=== PATIENT | female | born 1975 | race Hispanic/Latino ===

== ENCOUNTER 2023-09-29 18:10 | Inpatient (IN) | payer OTHER, SELFPAY ==
[2023-09-29] VITALS (12 sets, daily range): BP systolic 103–133; BP diastolic 55–93; BMI 24.6; BMI 23.6
[2023-09-29 13:18] LABS: % Basophils 0.5 % (0-2); % Eosinophils 6.2 % (0-6); % Immature Granulocytes 0.2 % (0-0.5); % Lymphocytes 20.2 % (20.5-51.1); % Monocytes 5.7 % (1.7-9.3); % Neutrophils 67.2 % (42.2-75.2); Absolute Eosinophils 0.3 10^3/uL (0-0.7); Absolute Lymphocytes 0.8 10^3/uL (1.2-3.4); Absolute Monocytes 0.2 10^3/uL (0.1-0.6); Absolute Neutrophils 2.7 10^3/uL (1.4-6.5); Hematocrit 33.8 % (37.0-47.0); Hemoglobin 12.4 g/dL (12.0-16.0); Mean Corp Hgb Conc. 36.7 g/dL (33.0-37.0); Mean Corpuscular Hgb 33.2 pg (27.0-31.0); Mean Corpuscular Volume 90.6 fL (81.0-99.0); Mean Platelet Volume 10.8 fL (7.4-10.4); Nucleated Red Blood Cells % 0 %; Platelet Count 181 10^3/uL (130-400); Red Blood Cell Count 3.73 10^6/uL (4.20-5.40); Red Cell Dist. Width 12.6 % (11.5-14.5); Urine Albumin Trace (Neg - Trace); Urine Bilirubin Negative (Negative); Urine Character Clear (Clear); Urine Color Yellow; Urine Glucose Negative (Negative); Urine Ketone 1+ (Negative); Urine Leukocyte Trace (Negative); Urine Nitrite Negative (Negative); Urine Occult Blood Negative (Negative); Urine Urobilinogen Negative (Neg - 1+); White Blood Cell Count 4.1 10^3/uL (4.8-10.8)
[2023-09-29 13:30] LABS: ALT (SGPT) 35 U/L (0-35); AST (SGOT) 31 U/L (14-36); Albumin 4.9 g/dl (3.5-5.0); Alkaline Phosphatase 101 U/L (38-126); Blood Urea Nitrogen 8 mg/dl (7-17); Calcium 9.3 mg/dl (8.4-10.2); Carbon Dioxide 26 mmol/L (22-30); Chloride 91 mmol/L (98-107); Estimated Creatinine Clearance 100 ml/min; Glucose 100 mg/dl (70-99); Lipase 85 U/L (23-300); Sodium 123 mmol/L (135-145); Total Bilirubin 0.6 mg/dl (0.2-1.3); Total Protein 7.7 g/dl (6.3-8.2); eGFR > 60.00
--- NOTE | 2023-09-29 13:31 | ED.GENMED ---
History of Present Illness
General
Chief Complaint: Abdominal Symptoms
Source: patient
Exam Limitations: none
Time Seen by Provider: 09/29/23 12:52
Nursing documentation reviewed up to this point in time: agreed with
Travel History
Have you had any contact with someone who has COVID-19?: No
Do you have any symptoms of coronavirus? Fever > 100 degrees, chills, cough, shortness of breath, sore throat, loss of taste or smell, muscle aches, or headache?: No
History of Present Illness
History of Present Illness:
48-year-old female with past medical history of trigeminal neuralgia on Tegretol history of hyponatremia presents to the ER for evaluation of abdominal pain. She reports she first noticed that her stomach seemed to be very noisy and gurgly and then
developed nausea and discomfort. She had loose stools on Tuesday. She went to urgent care on Tuesday and was told she had gastritis and given Zofran for nausea. She does describe abdominal discomfort with burning sensation and also describing
reflux. She today felt very dizzy in addition to abdominal discomfort. She denies any fever or chills. Denies any new frequency urgency or dysuria.
Past History
Past History
ED Past Medical History: GERD and Other (Trigeminal Neuralgia, hyponatremia)
ED Past Surgical History: None
Social History
Tobacco: Non-smoker
Alcohol: None
Personal:
Living: with family
Employment: Not employed
Family History
Family History: Other (Noncontributory)
Review of Systems
Review of Systems
Allergies reviewed?: Yes
All Other Systems: ROS reviewed and negative except as documented in HPI and ROS
Constitutional: Reports no symptoms; Denies fever, fatigue or chills
Respiratory: Reports no symptoms
Cardiac: Reports no symptoms
ABD/GI: Reports abdominal pain, nausea and other (loose stools several days ago ); Denies vomiting
Phy Exam
General Physical Exam
General Presentation: no apparent distress
General age: appears stated age
General Skin: warm and dry
General Habitus: normal
General Mental: alert
General Hydration: appears well hydrated
Cardiovascular Exam
Cardiovascular Exam: regular rate/rhythm, no murmur and normal peripheral pulses
Pulmonary Exam
Pulmonary Exam: lungs clear, no respiratory distress and no rales
Gastrointestinal Exam
Gastrointestinal Exam: soft and other (mild left abdominal tenderness )
Neurological Exam
Neurological Exam: alert and oriented x3
Musculoskeletal Exam
Musculoskeletal Exam: full ROM
Skin Exam
Skin Exam: normal color and warm/dry
Psychiatric Exam
Psychiatric Exam: normal mood/affect
Course
Orders/Labs/Results
Orders:
Orders
09/29/23 12:56
IV Insert/Care/Rem.- Treatment PRN
09/29/23 13:07
Complete Blood Count/With Diff Urgent
Comprehensive Metabolic Panel Urgent
HCG, Serum Qualitative Screen Urgent
Comment: ADD ON
Lipase Urgent
Osmolality, Random Urine Urgent
Date Specimen was Collected: 09/29/23
Time Specimen was Collected: 12:56
Comment: ADDON
Urinalysis Reflex To Culture Urgent
Date Specimen was Collected: 09/29/23
Time Specimen was Collected: 12:56
Urine Microscopic Reflex Cult Urgent
09/29/23 13:30
Ondansetron Injectable [Zofran] 4 mg IV NOW STA
09/29/23 13:31
Famotidine [Pepcid] 20 mg IV NOW STA
09/29/23 13:33
Add On- LAB Urgent
Tests Added?: serum hcg
09/29/23 13:35
CT Abd/pel W Iv And Oral Contr Urgent
Comment:
Reason For Exam: abd pain tenderness left abdomen
Iohexol [Omnipaque] See Protocol PO NOW STA
09/29/23 16:00
3% Sodium Chloride 250 ml [Sodium Chloride 3%] 250 ml IV ONCE
09/29/23 16:50
Electrocardiogram (*1) Stat
Reason for Study: Other
Other Reason for Exam: chest pain
EKG- Treatment ONCE
09/29/23 17:18
Admit/Transfer Patient As Directed
Co-Sign Provider:
Level of Care: Inpatient admission
Assign to:: Medical/Surgical
Physician / Group: maloney/hospitalist
Diagnosis: Hyponatremia
Reason for Hospitalization: Hyponatremia, weakness, gastroenteritis
Expected length of stay greater than two midnights?: Yes
ELOS- Estimated Length of Stay in days: 3
I certify the patient meets the requirements for IP care: Yes
09/29/23 17:19
Code Status As Directed
Resuscitation Status: Full Code
Abnormal Lab Results
09/29/23
13:07
WBC 4.1 L 10^3/uL
(4.8-10.8)
RBC 3.73 L 10^6/uL
(4.20-5.40)
Hct 33.8 L %
(37.0-47.0)
MCH 33.2 H pg
(27.0-31.0)
MPV 10.8 H fL
(7.4-10.4)
Absolute Lymphs (auto) 0.8 L 10^3/uL
(1.2-3.4)
Lymphocytes % 20.2 L %
(20.5-51.1)
Eosinophils % 6.2 H %
(0-6)
Sodium 123 L mmol/L
(135-145)
Chloride 91 L mmol/L
(98-107)
Creatinine 0.5 L mg/dL
(0.6-1.0)
Glucose 100 H mg/dl
(70-99)
Urine Ketones 1+ A
(Negative)
Leukocyte Esterase Rfl Trace A
(Negative)
Urine Bacteria (Reflex) Few A
(Negative)
09/29/23 13:07
09/29/23 13:07
Vital Signs
Initial and Last Documented VS:
Initial Vital Signs
Temp Pulse Resp BP Pulse Ox
98.1 F 73 16 111/78 98
09/29/23 12:35 09/29/23 12:35 09/29/23 12:35 09/29/23 12:35 09/29/23 12:35
Last Documented Vital Signs
Temp Pulse Resp BP Pulse Ox
98.1 F 82 24 108/72 98
09/29/23 12:35 09/29/23 18:15 09/29/23 18:15 09/29/23 18:00 09/29/23 18:15
MDM/Problems Addressed
Differential Diagnosis Includes:
not limited to: Reflux/GERD/gastritis/pancreatitis diverticulitis electrolyte abnormality hyponatremia
MDM/Problems Addressed:
48-year-old female presents to the ER for evaluation. Patient complains of abdominal discomfort, burning, nausea and also dizziness. Patient has a history of hyponatremia. Patient has been admitted for this previously the past and it was thought
to be carbamazepine related. She has been following fluid restriction but does report her Lasix was stopped by an emergency physician. She presents awake alert no acute afebrile stable hemoglobin at 12.4 her sodium is again low at 123 with normal
renal function. Regarding abdominal pain patient is mildly tender left side will obtain CAT scan. Regarding hyponatremia I spoke with nephrology who recommended hypertonic saline which was started in the ER. Will require admission
1648: No acute findings on CAT scan patient mid to the hospital service
Chronic conditions affecting care:
History of trigeminal neuralgia on carbamazepine which was thought to be causing hyponatremia and past admissions
*Radiology
Radiology exam reviewed: radiology read reviewed
*Pulse Oximetry
Patient hypoxic: no
*Critical Care Note
Total Time (30-74mins, 75-104mins- exclusive of procedures): Not Applicable
Data Reviewed
Review of Other/Old Records Reveals: Labs and Discharge Summary
Source: patient and spouse
Patient Management
Discussion with other providers: Manager Of [employer] (Nephrology, Dr. Bob)
ED Attending Note
-
Portions of this chart may have been created with voice recognition software.� Occasional wrong word or��sound alike� substitutions may have occurred due to the inherent limitations of voice recognition software.
Discharge Plan
Departure
Patient Disposition: Admit
Date of Disposition: 09/29/23
Time of Disposition: 17:21
Admit to: ICU
Admit to doctor: hospitalist
Presentation/result/management discussed w/ accepting MD/DO: Hospitalist
Patient with high blood pressure during this ER visit?: No
Condition: Fair
Covid-19: Not Applicable
Discharge Problem:
Acute hyponatremia, Abdominal pain
Interventions
Interventions:
*Risk Screen - Suicide Last Done: 09/29/23 13:21
*General Assessment Last Done: 09/29/23 13:21
*Neglect/Abuse Screening Last Done: 09/29/23 13:21
ED- Fall Risk Assessment Last Done: 09/29/23 13:21
*ED COVID-19 Vaccine History Last Done: 09/29/23 12:35
OH-Trpchh-Kjgfexnxdo Assessment Last Done: 09/29/23 13:21
[2023-09-29] MEDS: OMNIPAQUE 50 ML PO (13:48)
[2023-09-29] MEDS: PEPCID 20 MG IV (13:48)
[2023-09-29] MEDS: ZOFRAN 4 MG IV (13:48)
[2023-09-29 13:54] LABS: HCG, Serum Qualitative Screen Negative
[2023-09-29 14:01] LABS: Urine Bacteria Few (Negative); Urine Red Blood Cell 0-2 /HPF (0-2)
[2023-09-29 14:02] LABS: Urine Mucus Moderate
[2023-09-29] MEDS: SODIUM CHLORIDE 3% 250 IV (16:54)
--- NOTE | 2023-09-29 17:12 | HPS.HSE ---
Family Physician
-
Family Physician: Niru Mayo DO
Chief Complaint
-
weakness
History of Present Illness
48 female past medical history as below presenting from home with complaints of reflux. Patient states last week she had abdominal discomfort and went to urgent care where she was diagnosed with gastritis. At home patient complains of multiple
episode of reflux and burning sensation in the epigastric region. States at night she was having increasing amount of reflux in the esophagus and also metallic taste of her tongue. Also states of increasing abdominal sounds. Had 1 episode of
diarrhea on Tuesday. States of diffuse weakness. States of severely decreased appetite and only eating chicken broth. Had some nausea but no vomiting. Stools are starting to form. No fever but positive for chills. Denies any sick contact at
home. Denies any change in diet. Denies any recent takeout or restaurant food. States of increasing amount of reflux and chronic muscular back pain. States seeing chiropractor for her back pain.
Medical History
Past Medical History
Past Medical History: Reports Other
Additional Past Medical History:
Trigeminal neuralgia
Hyponatremia
Chronic muscular back pain
GERD
Past Surgical History: Reports None
Social History
Tobacco: Non-smoker
Alcohol: None
Personal:
Living: With Family
Family History
Family History: Not pertinent
Allergies / Home Medications
Allergies reflects when Allergies were last updated in [employer].
Home Medications with original date entered in [employer]
Allergy/Medication List:
Allergies
Allergy/AdvReac Type Severity Reaction Status Date / Time
No Known Allergies Allergy Verified 09/29/23 12:37
Home Medications
carbamazepine 200 mg tablet 400 mg PO BID trigeminal neuralgia 06/17/23
acetaminophen 325 mg tablet (Tylenol) 650 mg PO Q4HPRN PRN HEADACHE 09/29/23
cholecalciferol (vitamin D3) 25 mcg (1,000 unit) chewable tablet (Vitamin D3) 25 mcg PO DAILY 09/29/23
cyanocobalamin (vitamin B-12) 1,000 mcg tablet 1,000 mcg PO DAILY 09/29/23
vitamin E 268 mg (400 unit) capsule 268 mg PO DAILY 09/29/23
Review of Systems
-
History Source: Patient
A 12 point ROS was completed and negative except as noted: Yes
Physical Exam
Vital Signs
Vital Signs
Temp Pulse Resp BP Pulse Ox
98.1 F 66 15 120/79 100
09/29/23 12:35 09/29/23 16:00 09/29/23 16:00 09/29/23 16:00 09/29/23 16:00
Physical Exam
General: Well Developed, Well Nourished and No Apparent Distress
HEENT: NormoCephalic, Moist mucous membranes and Atraumatic
Respiratory: Clear
Cardiac: S1/S2 and Regular Rhythm; No Murmur or Rub
GI: Soft, Non Tender, Non Distended and Normal Bowel Sounds; No Organomegaly
Rectal: Deferred by Provider
Musculoskeletal: No Clubbing, No Cyanosis, No Edema and Other (TTP on left lower scapula region)
Skin: No Rash
Neuro: Awake, Alert, Oriented, AO x 3, No Motor Deficits and Nonfocal/grossly intact
Psych: Calm
Laboratory Results
-
09/29/23 13:07
09/29/23 13:07
Laboratory Results
Total Bilirubin 0.6 mg/dl (0.2-1.3) 09/29/23 13:07
AST 31 U/L (14-36) 09/29/23 13:07
ALT 35 U/L (0-35) 09/29/23 13:07
Alkaline Phosphatase 101 U/L (38-126) 09/29/23 13:07
Lipase 85 U/L (23-300) 09/29/23 13:07
Impression/Plan
-
#Symptomatic hyponatremia likely secondary to decreased p.o. intake versus SIADH in the setting of chronic muscular back pain versus side effects of Tegretol
Patient with sodium 123
Patient states she is compliant with fluid restriction of 48 ounce
Case was discussed with nephrology by ER and started on hypertonic saline
Trend BMP
Patient states unable to be weaned off Tegretol due to severe pain
Nephrology eval
#GERD
Start patient on Pepcid twice daily
#Nausea/diarrhea likely secondary to viral gastroenteritis
CT abdomen pelvis noted. CBD at 1cm. No finding to suggest intrahepatic biliary tract dilatation. Gallbladder within normal limits. Pancreas no finding to suggest pancreatic ductal dilatation. No right upper quadrant abdominal pain.
AST, ALT and total bilirubin and alk phos within normal limits lipase within normal limits
Low residue diet and monitor. If repeat episode of discomfort may need to consider GI eval
Antinausea meds as needed
#Trigeminal neuralgia
Continue with Tegretol
Chronic muscular back pain
Tylenol as needed
Ice pack as needed
DVT prophylaxis Lovenox
[2023-09-29 18:48] LABS: Osmolality Urine 489 mOsm/kg (300-900)
[2023-09-29] MEDS: PEPCID 20 MG PO (21:12)
--- NOTE | 2023-09-29 22:03 | PTCARENOTE ---
Patient arrived to unit around 20:45 via stretcher with diagnosis of hyponatremia. 3% sodium infusing upon arrival. Vitals stable. Patient AAOX3. Denies any pain or discomfort. Oriented to unit. Call javier with reach.
[2023-09-29] MEDS: NON-FORMULARY ITEM 400 UNIT PO (22:20)
[2023-09-30 07:30] VITALS: BP 98/64
[2023-09-30] MEDS: VITAMIN E 400 UNITS PO (07:30)
[2023-09-30] MEDS: VITAMIN D3 (cholecalciferol) 25 MCG PO (07:30)
[2023-09-30] MEDS: PEPCID 20 MG PO ×2 (07:30→20:55)
[2023-09-30] MEDS: VITAMIN B-12 1000 MCG PO (07:30)
[2023-09-30] MEDS: NON-FORMULARY ITEM 1 UNIT PO ×2 (07:30→18:02)
[2023-09-30 07:47] LABS: ALT (SGPT) 28 U/L (0-35); AST (SGOT) 24 U/L (14-36); Albumin 3.9 g/dl (3.5-5.0); Alkaline Phosphatase 77 U/L (38-126); Blood Urea Nitrogen 13 mg/dl (7-17); Calcium 9.2 mg/dl (8.4-10.2); Carbon Dioxide 25 mmol/L (22-30); Chloride 98 mmol/L (98-107); Estimated Creatinine Clearance 100 ml/min; Glucose 93 mg/dl (70-99); Potassium 4.1 mmol/L (3.5-5.1); Sodium 132 mmol/L (135-145); Total Bilirubin 0.6 mg/dl (0.2-1.3); Total Protein 6.4 g/dl (6.3-8.2); eGFR > 60.00
[2023-09-30] MEDS: D5W 1000 IV (09:22)
--- NOTE | 2023-09-30 11:39 | W.PN.HOSP.TC ---
Today's Communication/Plan
-
Trend BMP
nephrology rec
Await stool studies
Assessment / Plan
Assessment / Plan
#Symptomatic hyponatremia likely secondary to decreased p.o. intake versus SIADH in the setting of chronic muscular back pain versus side effects of Tegretol
Patient with sodium 123 on admission
Patient states she is compliant with fluid restriction of 48 ounce
Status post hypertonic saline with sodium at 132.
Patient was started on hypotonic saline per nephrology. D5 at 100cc/hr.
Trend BMP
Patient states unable to be weaned off Tegretol due to severe pain
Nephrology eval
#GERD
Start patient on Pepcid twice daily improvement
#Nausea/diarrhea likely secondary to viral gastroenteritis
CT abdomen pelvis noted. CBD at 1cm. No finding to suggest intrahepatic biliary tract dilatation. Gallbladder within normal limits. Pancreas no finding to suggest pancreatic ductal dilatation. No right upper quadrant abdominal pain.
AST, ALT and total bilirubin and alk phos within normal limits lipase within normal limits
Low residue diet and monitor. If repeat episode of discomfort may need to consider GI eval
Antinausea meds as needed
C. difficile negative
await other stool studies.
#Trigeminal neuralgia
Continue with Tegretol
Chronic muscular back pain
Tylenol as needed
Ice pack as needed
DVT prophylaxis Lovenox
Anticipated Discharge: 24 - 48 hours
Subjective/Interval History
-
Date of Service: September 30, 2023
Had few loose stools overnight
States improvement in reflux
Objective Data
-
Labs:
Laboratory Results
09/30/23 09/30/23
06:47 14:00
Sodium 132 L D Pending
Potassium 4.1 Pending
Chloride 98 Pending
Carbon Dioxide 25 Pending
BUN 13 Pending
Creatinine 0.5 L Pending
Glucose 93 Pending
Calcium 9.2 Pending
Total Bilirubin 0.6
AST 24
ALT 28
Alkaline Phosphatase 77
Vital Signs:
Vital Signs
Temp Pulse Resp BP Pulse Ox
98 F 68 19 98/64 98
09/30/23 07:30 09/30/23 07:30 09/30/23 07:30 09/30/23 07:30 09/30/23 07:30
I&O
09/29/23 09/30/23 10/01/23
06:59 06:59 06:59
Intake Total 730 / 730
Balance 730 / 730
Physical Exam
-
General: Well Developed and No Apparent Distress
HEENT: Normocephalic, Atraumatic and Moist Mucous Membranes
Respiratory: Clear to Auscultation
Cardiac: Regular Rhythm and S1/S2; Negative Murmur, Rub or Gallop
GI: Soft, Nontender, Nondistended and Normal Bowel Sounds; Negative Organomegaly
Rectal: Deferred by Provider
Musculoskeletal: No Clubbing, No Cyanosis and No Edema
Skin: Negative Rash
Neuro: Awake, Alert, Oriented, AO x 3, No Motor Deficits and Nonfocal/Grossly Intact
Psych: Calm
--- NOTE | 2023-09-30 11:55 | CM ---
global sourcing manager reviewed patient's chart and met with patient and patient lives with her spouse in a 1 story home, patient is independent with adl's and ambulation, no dme, patient drives, patient has a prescription plan and patient uses [facility] pharmacy.
PCP: Patient is currently looking into obtaining a PCP.
Plan; Home when stable.
[2023-09-30 14:17] LABS: Blood Urea Nitrogen 9 mg/dl (7-17); Calcium 9.5 mg/dl (8.4-10.2); Carbon Dioxide 26 mmol/L (22-30); Chloride 99 mmol/L (98-107); Estimated Creatinine Clearance 100 ml/min; Glucose 113 mg/dl (70-99); Potassium 3.9 mmol/L (3.5-5.1); Sodium 130 mmol/L (135-145); eGFR > 60.00
--- NOTE | 2023-09-30 15:38 | W.CON.NEPH ---
Consultation
-
Date/Time Consultation Requested: 09/29 20:49
Date/Time Consultation Performed: 09/30 3:39PM
Requesting Provider: Jean-Paul Bergeron
Performing Provider: Shana Bowden
Reason for Consultation: Hyponatremia
Medical History
-
Chief Complaint: hyponatremia
History of Present Illness:
Ms. Miller is a 48YOF with PMH of trigeminal neuralgia, hyponatremia, GERD, chronic back pain who presents to the hospital with stomach discomfort and sxs of diarrhea who was found to have a Na of 123 on presentation. The patient states that she
has been feeling very weak and had 2-3 episodes of diarrhea. States that she has had nausea but no vomitting. Denies fevers, sick contacts.
Regarding her hyponatremia, she states this has happened to her twice before -- once in May and once in June. She was seen previously by our group both times and was discharged on fluid resctriction and lasix. In may, she did have some
medication adjustments (she was maintained on carbemazapine for trigeminal neuralgia but stopped pregabalin). Neurology believes she must be maintained on Tegretol for her trigeminal neuralgia. Overnight, she was given HTS with Na correction from
123 --> 132. I gave D5W for 5 hours with decrease in Na to 130 this afternoon.
Past Medical History
Trigeminal Neuralgia
hyponatremia
GERD
back pain
Past Surgical History: Other
Social History
Tobacco: Non-Smoker
Alcohol: None
Family History
no CKD
Allergies / Home Medications
Allergy/AdvReac Type Severity Reaction Status Date / Time
No Known Allergies Allergy Verified 09/29/23 12:37
Medication Instructions Recorded Confirmed Type
carbamazepine 200 mg tablet 400 mg PO BID trigeminal neuralgia 06/17/23 09/29/23 History
acetaminophen 325 mg tablet 650 mg PO Q4HPRN PRN HEADACHE 09/29/23 09/29/23 History
(Tylenol)
cholecalciferol (vitamin D3) 25 25 mcg PO DAILY Supplement 09/29/23 09/29/23 History
mcg (1,000 unit) chewable tablet
(Vitamin D3)
cyanocobalamin (vitamin B-12) 1,000 mcg PO DAILY Supplement 09/29/23 09/29/23 History
1,000 mcg tablet
vitamin E 268 mg (400 unit) capsule 268 mg PO DAILY Supplement 09/29/23 09/29/23 History
Review of Systems
-
History Source: Patient
All other systems: Negative unless noted
Constitutional: Night Sweats
EENT: No Symptoms
Respiratory: No Symptoms
Cardiac: No Symptoms
Abdomen/GI: Abdominal Pain, Nausea and Diarrhea
: No Symptoms
Musculoskeletal: No Symptoms
Skin: No Symptoms
Neurological: Headache
Endocrine: No Symptoms
Hematologic/Lymphatic: No Symptoms
Physical Exam
Vital Signs
Vital Signs
Temp Pulse Resp BP Pulse Ox
98 F 68 19 98/64 98
09/30/23 07:30 09/30/23 07:30 09/30/23 07:30 09/30/23 07:30 09/30/23 07:30
Lab Results
WBC 4.1 10^3/uL (4.8-10.8) L 09/29/23 13:07
RBC 3.73 10^6/uL (4.20-5.40) L 09/29/23 13:07
Hgb 12.4 g/dL (12.0-16.0) 09/29/23 13:07
Hct 33.8 % (37.0-47.0) L 09/29/23 13:07
Plt Count 181 10^3/uL (130-400) 09/29/23 13:07
Sodium 130 mmol/L (135-145) L 09/30/23 13:42
Potassium 3.9 mmol/L (3.5-5.1) 09/30/23 13:42
Chloride 99 mmol/L (98-107) 09/30/23 13:42
Carbon Dioxide 26 mmol/L (22-30) 09/30/23 13:42
BUN 9 mg/dl (7-17) 09/30/23 13:42
Creatinine 0.5 mg/dL (0.6-1.0) L 09/30/23 13:42
eGFR > 60.00 09/30/23 13:42
Glucose 113 mg/dl (70-99) H 09/30/23 13:42
Calcium 9.5 mg/dl (8.4-10.2) 09/30/23 13:42
Albumin 3.9 g/dl (3.5-5.0) 09/30/23 06:47
Physical Exam
General: Awake, Alert, Oriented, AOx3, No Distress and Nontoxic
HEENT: PERRL and EOMI
Respiratory: Clear
Cardiac: S1/S2
Breast: Deferred by me
Abdomen: Soft, Nontender and Nondistended
Rectal: Deferred by Provider
Genito-urinary: Other (no [place]aco)
Musculoskeletal: No Edema
Skin: No Rash, Warm and Dry
Neuro: Nonfocal/Grossly Intact
Hematologic/Lymphatic: No Cervical Lymphadenopathy
Psych: Mood/afflect pleasant
Assessment/Plan
-
Assessment:
Hyponatremia
GERD
Nausea/diarrhea
Trigeminal Neuralgia
Back Pain
Plan:
- given 3% overnight with slightly rapid correction of Na. Given D5W today and down to 130 now.
- plan for salt tabs + lasix to assist with SIADH. diarrhea now resolved no s/s of volume depletion
- obtain Uosm and Jody to ensure correction is appropriate
- obtain uric acid, cortisol and TSH (night sweats are perimenopausal or thyroid abnormality?)
- encouraged high osmolar intake with patient
Data Reviewed
-
CT Scan: Report Reviewed by me
Labs: Labs Reviewed by me and Discussed with Patient
Old Records: Reviewed
[2023-09-30 15:54] VITALS: BP 115/73
[2023-09-30] MEDS: LASIX 20 MG PO (16:32)
[2023-09-30 17:23] VITALS: BMI 23.6
[2023-09-30 18:38] LABS: Osmolality Urine 415 mOsm/kg (300-900)
[2023-09-30 18:52] LABS: Urine Sodium 69 mmol/L (30-90)
[2023-09-30] MEDS: SODIUM CHLORIDE 1 GRAM PO (20:55)
[2023-09-30 23:34] VITALS: BP 104/63
[2023-09-30] MEDS: NON-FORMULARY ITEM PO (23:52)
[2023-10-01 06:55] LABS: ALT (SGPT) 29 U/L (0-35); AST (SGOT) 25 U/L (14-36); Albumin 4.2 g/dl (3.5-5.0); Alkaline Phosphatase 77 U/L (38-126); Blood Urea Nitrogen 10 mg/dl (7-17); Calcium 9.2 mg/dl (8.4-10.2); Carbon Dioxide 27 mmol/L (22-30); Chloride 98 mmol/L (98-107); Estimated Creatinine Clearance 100 ml/min; Glucose 90 mg/dl (70-99); Potassium 4.1 mmol/L (3.5-5.1); Sodium 131 mmol/L (135-145); Total Bilirubin 0.5 mg/dl (0.2-1.3); Total Protein 6.7 g/dl (6.3-8.2); Uric Acid 2.5 mg/dl (2.5-6.2); eGFR > 60.00
[2023-10-01 07:20] VITALS: BP 113/69
[2023-10-01 07:24] LABS: TSH 5.43 uIU/ml (0.47-4.68)
[2023-10-01 07:25] LABS: Cortisol, Random 16.7 ug/dl
[2023-10-01] MEDS: PEPCID 20 MG PO (09:14)
[2023-10-01] MEDS: SODIUM CHLORIDE 1 GRAM PO (09:14)
[2023-10-01] MEDS: LASIX 20 MG PO (09:14)
[2023-10-01] MEDS: NON-FORMULARY ITEM 1 UNIT PO (09:15)
[2023-10-01] MEDS: VITAMIN B-12 1000 MCG PO (09:15)
[2023-10-01] MEDS: VITAMIN D3 (cholecalciferol) 25 MCG PO (09:15)
[2023-10-01] MEDS: VITAMIN E 400 UNITS PO (09:15)
[2023-10-01 09:20] LABS: Free T4 0.86 ng/dl (0.78-2.19)
--- NOTE | 2023-10-01 11:44 | W.PN.HOSP.TC ---
Today's Communication/Plan
-
lasix/salt tab
nephro recs
cont pepcid
Assessment / Plan
Assessment / Plan
#Symptomatic hyponatremia likely secondary to decreased p.o. intake versus SIADH in the setting of chronic muscular back pain versus side effects of Tegretol
Patient with sodium 123 on admission
Patient states she is compliant with fluid restriction of 48 ounce
s/p D5 at 100cc/hr.
sodium at 131
started on lasix 20mg with Salt tab 1g BID
Trend BMP
Patient states unable to be weaned off Tegretol due to severe pain
Nephrology eval
#Subclinical hypothyroidism
-repeat TFTs in 4-6 weeks.
#GERD
Start patient on Pepcid twice daily improvement
#Nausea/diarrhea likely secondary to viral gastroenteritis
CT abdomen pelvis noted. CBD at 1cm. No finding to suggest intrahepatic biliary tract dilatation. Gallbladder within normal limits. Pancreas no finding to suggest pancreatic ductal dilatation. No right upper quadrant abdominal pain.
AST, ALT and total bilirubin and alk phos within normal limits lipase within normal limits
Low residue diet and monitor. If repeat episode of discomfort may need to consider GI eval
Antinausea meds as needed
C. difficile negative
Tolerating diet.
#Trigeminal neuralgia
Continue with Tegretol home regimen 400mg TID
OP neurology f/u
#Chronic muscular back pain
Tylenol as needed
Ice pack as needed
DVT prophylaxis Lovenox
Dispo-trend bmp. Nephro recs.
Anticipated Discharge: Within 24 hours
Subjective/Interval History
-
Date of Service: October 01, 2023
No loose stools since yesterday 11 am
Tolerating diet
no nausea or vomiting
Objective Data
-
Labs:
Laboratory Results
10/01/23
05:57
Sodium 131 L
Potassium 4.1
Chloride 98
Carbon Dioxide 27
BUN 10
Creatinine 0.5 L
Glucose 90
Calcium 9.2
Total Bilirubin 0.5
AST 25
ALT 29
Alkaline Phosphatase 77
Vital Signs:
Vital Signs
Temp Pulse Resp BP Pulse Ox
98.1 F 75 14 113/69 100
10/01/23 07:20 10/01/23 09:14 10/01/23 07:20 10/01/23 09:14 10/01/23 07:20
I&O
09/30/23 10/01/23 10/02/23
06:59 06:59 06:59
Intake Total 730 / 730 940 / 940
Balance 730 / 730 940 / 940
Physical Exam
-
General: Well Developed and No Apparent Distress
HEENT: Normocephalic, Atraumatic and Moist Mucous Membranes
Respiratory: Clear to Auscultation
Cardiac: Regular Rhythm and S1/S2; Negative Murmur, Rub or Gallop
GI: Soft, Nontender, Nondistended and Normal Bowel Sounds; Negative Organomegaly
Rectal: Deferred by Provider
Musculoskeletal: No Clubbing, No Cyanosis, No Edema and Other (TTP to R subscapaular region -only at 1 speciific spot )
Skin: Negative Rash
Neuro: Awake, Alert, Oriented, AO x 3, No Motor Deficits and Nonfocal/Grossly Intact
Psych: Calm
--- NOTE | 2023-10-01 11:45 | W.PN.NEPH.PH ---
Today's Communication / Plan
-
- Na improved to 131
- d/c planning
Assessment/Plan
-
Assessment:
Hyponatremia
GERD
Nausea/diarrhea
Trigeminal Neuralgia
Back Pain
Plan:
- given 3% overnight with slightly rapid correction of Na. Given D5W today and down to 130 now.
- plan for salt tabs + lasix to assist with SIADH. diarrhea now resolved no s/s of volume depletion
- Uosm 415 and Samy 69 --> consistent with SIADH. will trial lasix + salt tabs + FR. i am optimistic that this should maintain her as an outpaitnet
- TSH slightly elevated but T4 wnl --> continue to monitor. uric acid and cortisol wnl
- encouraged high osmolar intake with patient
-
-
Date of Service: October 01, 2023
CC / HPI / ROS
-
Chief Complaint:
hyponatremia
History of Present Illness:
Na improving after hypertonics
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
Review of Systems:
feeling well this AM
Labs
-
Labs:
WBC 4.1 10^3/uL (4.8-10.8) L 09/29/23 13:07
RBC 3.73 10^6/uL (4.20-5.40) L 09/29/23 13:07
Hgb 12.4 g/dL (12.0-16.0) 09/29/23 13:07
Hct 33.8 % (37.0-47.0) L 09/29/23 13:07
Plt Count 181 10^3/uL (130-400) 09/29/23 13:07
Sodium 131 mmol/L (135-145) L 10/01/23 05:57
Potassium 4.1 mmol/L (3.5-5.1) 10/01/23 05:57
Chloride 98 mmol/L (98-107) 10/01/23 05:57
Carbon Dioxide 27 mmol/L (22-30) 10/01/23 05:57
BUN 10 mg/dl (7-17) 10/01/23 05:57
Creatinine 0.5 mg/dL (0.6-1.0) L 10/01/23 05:57
eGFR > 60.00 10/01/23 05:57
Glucose 90 mg/dl (70-99) 10/01/23 05:57
Calcium 9.2 mg/dl (8.4-10.2) 10/01/23 05:57
Albumin 4.2 g/dl (3.5-5.0) 10/01/23 05:57
Physical Exam
-
Vital Signs:
Vital Signs
Temp Pulse Resp BP Pulse Ox
98.1 F 75 14 113/69 100
10/01/23 07:20 10/01/23 09:14 10/01/23 07:20 10/01/23 09:14 10/01/23 07:20
Cardiovascular:: Regular rate and rhythm
Respiratory:: Bilateral: CTA
Lung Excursion:: Normal
Abdomen:: Nontender and Soft
Bowel Sounds:: Normal
Extremity Edema:: None: Bilateral:
Ponce Catheter: No
--- NOTE | 2023-10-01 12:08 | W.DCSUMMARY ---
Discharge Summary
Discharge Data
Date of Admission: 09/29/23
Date of Discharge: 10/01/23
-
Pending Results: No
Hospital Course
48-year-old female past medical history of GERD, chronic hyponatremia, chronic muscular back pain, trigeminal neuralgia who is presenting with weakness, nausea, vomiting and diarrhea. Patient upon admission underwent CT abdomen pelvis CBD at 1cm.�
No finding to suggest intrahepatic biliary tract dilatation.� Gallbladder within normal limits.� Pancreas no finding to suggest pancreatic ductal dilatation.� No right upper quadrant abdominal pain. AST, ALT and total bilirubin and alk phos within
normal limits lipase within normal limits. Patient was tolerating diet without any difficulty. Patient had loose stools and C. difficile was found to be negative. Patient without any episode of nausea vomiting throughout hospitalization. Patient
was also found to have hyponatremia and sodium was found to be 123. Patient received hypertonic saline leading to sodium 132 and subsequently afterwards patient was started on D5 per nephrology. Patient sodium stabilized 131. Patient was started
on Lasix 20 mg with salt tablet 1 g twice daily by nephrology. Recommended outpatient repeat BMP and thyroid function testing. Patient be discharged home with recommendation to follow-up with primary doctor.
Discharge Plan
-
Patient Disposition: Home (Routine Discharge)
Discharge Diagnosis/Procedures: Symptomatic hyponatremia likely secondary to decreased oral intake versus SIADH in the setting of chronic muscular back pain versus side effects of Tegretol
Subclinical hypothyroidism
Nausea/diarrhea likely secondary to viral gastroenteritis
Condition: Fair
Diet: Low Residue
Activity: With assistance and As tolerated
Driving Restrictions: As prior to admission
Blood Work: Repeat BMP and TFTS in 5-7 days via primary doctor.
Referrals:
Niru Mayo DO [Family Provider] - in less than 1 week
Prescriptions:
New
famotidine 20 mg Tablet
20 mg PO BID 10 Days Qty: 20 0RF
furosemide 20 mg Tablet
20 mg PO DAILY 30 Days Qty: 30 0RF
sodium chloride 1,000 mg Tablet,Soluble
1,000 mg PO BID Qty: 60 0RF
Continued
carbamazepine 200 mg Tablet
400 mg PO TID
Rx Instructions:
PT HAS TO USE HER OWN
acetaminophen [Tylenol] 325 mg Tablet
650 mg PO Q4HPRN PRN (Reason: HEADACHE)
cyanocobalamin (vitamin B-12) 1,000 mcg Tablet
1,000 mcg PO DAILY
vitamin E 268 mg (400 unit) Capsule
268 mg PO DAILY
cholecalciferol (vitamin D3) [Vitamin D3] 25 mcg (1,000 unit) Tablet,Chewable
25 mcg PO DAILY
Discharge Orders:
Discharge Patient (As Directed); Ordered 10/01/23
Ordered By: Jean-Paul Bergeron
Discharge Date and Time
Discharge Date/Time: 10/01/23 14:34
--- NOTE | 2023-10-01 13:47 | CM ---
Patient seen bedside, reports no new concerns at this time. Patient reports her will be here after work to transport her home. CM will continue to follow for discharge planning needs.
Plan; home no needs.
== END 2023-10-01 14:34 | disposition home or self-care (01) | DRG 645 ==
LOC: 4 WEST ACU 18:10
PROVIDERS: Nurse Practitioner; ADMITTING PHYSICIAN Hospitalist; EMERGENCY PHYSICIAN Emergency Medicine; FAMILY PHYSICIAN Family Medicine; OTHER PHYSICIAN Student in an Organized Health Care Education/Training Program
DX: E22.2 Syndrome of inappropriate secretion of antidiuretic hormone (principal); K21.9 Gastro-esophageal reflux disease without esophagitis; G50.0 Trigeminal neuralgia; M54.9 Dorsalgia, unspecified; G89.29 Other chronic pain
CPT/HCPCS: 74177; 80048; 80053; 81003; 81015; 82533; 83690; 83935; 84300; 84439; 84443; 84550; 84703; 85025; 87045; 87046; 87077; 87324; 87427; 87449; 93005; 96374; 96375; 99285; Q9967

== ENCOUNTER → 2023-10-06 15:38 | Outpatient (REF) | payer OTHER, SELFPAY ==
[2023-10-06 16:18] LABS: Blood Urea Nitrogen 11 mg/dl (7-17); Calcium 9.8 mg/dl (8.4-10.2); Carbon Dioxide 30 mmol/L (22-30); Chloride 99 mmol/L (98-107); Glucose 99 mg/dl (70-99); Potassium 4.3 mmol/L (3.5-5.1); Sodium 136 mmol/L (135-145); eGFR > 60.00
== END ==
LOC: CLAB 15:38
PROVIDERS: ATTENDING PHYSICIAN Family Medicine
DX: E87.1 Hypo-osmolality and hyponatremia (principal)
CPT/HCPCS: 36415; 80048

== ENCOUNTER → 2023-10-15 07:09 | Outpatient (REF) | payer OTHER, SELFPAY ==
[2023-10-15 08:56] LABS: % Basophils 1.4 % (0-2); % Eosinophils 11.9 % (0-6); % Lymphocytes 43.5 % (20.5-51.1); % Monocytes 5.4 % (1.7-9.3); % Neutrophils 37.8 % (42.2-75.2); Absolute Eosinophils 0.4 10^3/uL (0-0.7); Absolute Lymphocytes 1.3 10^3/uL (1.2-3.4); Absolute Monocytes 0.2 10^3/uL (0.1-0.6); Absolute Neutrophils 1.1 10^3/uL (1.4-6.5); Hematocrit 34.9 % (37.0-47.0); Hemoglobin 12.1 g/dL (12.0-16.0); Mean Corp Hgb Conc. 34.7 g/dL (33.0-37.0); Mean Corpuscular Hgb 33.2 pg (27.0-31.0); Mean Corpuscular Volume 95.9 fL (81.0-99.0); Mean Platelet Volume 11.1 fL (7.4-10.4); Nucleated Red Blood Cells % 0 %; Platelet Count 174 10^3/uL (130-400); Red Blood Cell Count 3.64 10^6/uL (4.20-5.40); Red Cell Dist. Width 13.2 % (11.5-14.5); White Blood Cell Count 2.9 10^3/uL (4.8-10.8)
[2023-10-15 09:35] LABS: Blood Urea Nitrogen 21 mg/dl (7-17); Calcium 9.2 mg/dl (8.4-10.2); Carbon Dioxide 28 mmol/L (22-30); Chloride 106 mmol/L (98-107); Glucose 89 mg/dl (70-99); Iron 121 ug/dl (37-170); Potassium 3.8 mmol/L (3.5-5.1); Sodium 138 mmol/L (135-145); eGFR > 60.00
[2023-10-15 10:29] LABS: Vitamin B12 998 pg/ml (239-931)
== END ==
LOC: REG 07:09
PROVIDERS: ATTENDING PHYSICIAN Family Medicine
DX: E87.1 Hypo-osmolality and hyponatremia (principal); D64.9 Anemia, unspecified; D70.8 Other neutropenia; E53.8 Deficiency of other specified B group vitamins
CPT/HCPCS: 36415; 80048; 82607; 83540; 85025

== ENCOUNTER 2023-11-07 15:13 | Outpatient (RCR) | payer OTHER, SELFPAY | END 2023-11-07 23:59 | disposition home or self-care (01) | LOC: RPT 15:13 | PROVIDERS: ATTENDING PHYSICIAN Orthopaedic Surgery; FAMILY PHYSICIAN Family Medicine | DX: M54.6 Pain in thoracic spine (principal); Z73.6 Limitation of activities due to disability | CPT/HCPCS: 97010; 97112; 97140; 97162 ==

== ENCOUNTER 2023-12-31 10:43 | Emergency (ER) | payer OTHER, SELFPAY ==
[2023-12-31 10:51] VITALS: BP 116/78
[2023-12-31 11:19] VITALS: BMI 24.6
[2023-12-31] MEDS: PROTONIX IV 40 MG IV (11:28)
[2023-12-31] MEDS: MAALOX 40 PO (11:28)
[2023-12-31] MEDS: NSS 1000 IV (11:29)
[2023-12-31 11:46] LABS: Hematocrit 31.6 % (37.0-47.0); Hemoglobin 11.5 g/dL (12.0-16.0); Mean Corp Hgb Conc. 36.4 g/dL (33.0-37.0); Mean Corpuscular Volume 90.8 fL (81.0-99.0); Mean Platelet Volume 9.8 fL (7.4-10.4); Platelet Count 227 10^3/uL (130-400); Red Blood Cell Count 3.48 10^6/uL (4.20-5.40); Red Cell Dist. Width 12.6 % (11.5-14.5); White Blood Cell Count 4.7 10^3/uL (4.8-10.8)
[2023-12-31 12:03] LABS: Urine Albumin Negative (Neg - Trace); Urine Bilirubin Negative (Negative); Urine Character Clear (Clear); Urine Color Yellow; Urine Glucose Negative (Negative); Urine Ketone Negative (Negative); Urine Leukocyte Negative (Negative); Urine Nitrite Negative (Negative); Urine Occult Blood Negative (Negative); Urine Urobilinogen Negative (Neg - 1+)
[2023-12-31 12:04] LABS: HCG, Serum Qualitative Screen Negative
[2023-12-31 12:06] LABS: ALT (SGPT) 25 U/L (0-35); AST (SGOT) 20 U/L (14-36); Albumin 4.2 g/dl (3.5-5.0); Alkaline Phosphatase 93 U/L (38-126); Blood Urea Nitrogen 7 mg/dl (7-17); Calcium 9.2 mg/dl (8.4-10.2); Carbon Dioxide 24 mmol/L (22-30); Chloride 95 mmol/L (98-107); Estimated Creatinine Clearance 100 ml/min; Glucose 100 mg/dl (70-99); Lipase 207 U/L (23-300); Potassium 4.1 mmol/L (3.5-5.1); Sodium 126 mmol/L (135-145); Total Bilirubin 0.8 mg/dl (0.2-1.3); eGFR > 60.00
--- NOTE | 2023-12-31 13:07 | ED.GENMED ---
History of Present Illness
General
Chief Complaint: Abdominal Pain
Source: patient
Exam Limitations: none
Time Seen by Provider: 12/31/23 10:58
Nursing documentation reviewed up to this point in time: agreed with
Travel History
Have you had any contact with someone who has COVID-19?: No
Do you have any symptoms of coronavirus? Fever > 100 degrees, chills, cough, shortness of breath, sore throat, loss of taste or smell, muscle aches, or headache?: No
History of Present Illness
History of Present Illness:
Patient presents to ED secondary to persistent upper abdominal pain over the past 5 days. Denies fever or chills. Patient reports intermittent nausea sensation without vomiting. Denies diarrhea. Abdominal pain described as sharp, nonradiating,
worse with meals. Denies trauma. Denies difficulty with urination. Denies chest pain or shortness of breath. Denies fever or chills. Patient states that she has had similar symptoms in the past, secondary to 'gastritis'. Denies recent illness.
Denies recent change in medications or diet. Patient took Prilosec last night, without improvement in symptoms.
Past History
Past History
ED Past Medical History: GERD and Other (Trigeminal Neuralgia, hyponatremia)
ED Past Surgical History: None
Social History
Tobacco: Non-smoker
Alcohol: None
Personal:
Living: with family
Employment: Not employed
Family History
Family History: Other (Noncontributory)
Review of Systems
Review of Systems
Allergies reviewed?: Yes
All Other Systems: ROS reviewed and negative except as documented in HPI and ROS
Constitutional: Reports no symptoms; Denies fever or chills
Respiratory: Reports no symptoms
Cardiac: Reports no symptoms
ABD/GI: Reports abdominal pain and nausea; Denies vomiting or diarrhea
: Reports no symptoms
Musculoskeletal: Reports no symptoms
Skin: Reports no symptoms
Neurological: Reports no symptoms
Phy Exam
Physical Exam
Physical Exam:
Physical Exam
General: no apparent distress, not acutely ill. afebrile
Head: nc/at. eomi
Neck: supple. no meningeal signs.
Heart: s1/s2 regular rate and rhythm, no murmur. equal radial pulses.
Lungs: no acute respiratory distress. clear bilaterally
Abdomen: normal bowel sounds. mild epigastric tenderness to palpation. no rebound/guarding.
Neuro: alert and oriented. no focal neurological deficits
Skin: no rash
Psychiatric: well kept. interactive and cooperative
Extremities: no edema. no calf tenderness.
Course
Orders/Labs/Results
Orders:
Orders
12/31/23 11:16
Mag Hydrox/Al Hydrox/Simeth [Maalox] 30 ml Phenobarb/Hyoscy/Atropine/Scop [] 10 ml PO NOW
12/31/23 11:18
0.9% Sodium Chloride 1000 ml [Nss] 1,000 ml IV BOLUS
Pantoprazole [Protonix IV] 40 mg IV NOW STA
Test Result ONCE
12/31/23 11:24
Mag Hydrox/Al Hydrox/Simeth [Maalox] 30 ml .ROUTE .STK-MED ONE
Phenobarb/Hyoscy/Atropine/Scop [] 10 ml .ROUTE .STK-MED ONE
12/31/23 11:28
Complete Blood Count/No Diff Urgent
Comprehensive Metabolic Panel Urgent
HCG, Serum Qualitative Screen Urgent
Lipase Urgent
Serum Osmolality Urgent
Comment: ADD ON
12/31/23 11:29
Osmolality, Random Urine Urgent
Date Specimen was Collected: 12/31/23
Time Specimen was Collected: 11:28
Urinalysis Reflex To Culture Urgent
Date Specimen was Collected: 12/31/23
Time Specimen was Collected: 11:28
Urine Sodium Urgent
Date Specimen was Collected: 12/31/23
Time Specimen was Collected: 11:28
Comment: ADD ON
12/31/23 11:40
US Abdomen Complete/Upper Urgent
Comment:
Reason For Exam: epigastric pain
12/31/23 12:59
Add On- LAB Urgent
Tests Added?: urine sodium, urine osm, serum osm
Abnormal Lab Results
12/31/23
11:28
WBC 4.7 L 10^3/uL
(4.8-10.8)
RBC 3.48 L 10^6/uL
(4.20-5.40)
Hgb 11.5 L g/dL
(12.0-16.0)
Hct 31.6 L %
(37.0-47.0)
MCH 33.0 H pg
(27.0-31.0)
Sodium 126 L mmol/L
(135-145)
Chloride 95 L mmol/L
(98-107)
Creatinine 0.4 L mg/dL
(0.6-1.0)
Glucose 100 H mg/dl
(70-99)
Serum Osmolality 261 L mOsm/kg
(275-300)
12/31/23 11:28
12/31/23 11:28
Vital Signs
Initial and Last Documented VS:
Initial Vital Signs
Temp Pulse Resp BP Pulse Ox
98.2 F 67 20 116/78 100
12/31/23 10:51 12/31/23 10:51 12/31/23 10:51 12/31/23 10:51 12/31/23 10:51
Last Documented Vital Signs
Temp Pulse Resp BP Pulse Ox
98.4 F 65 17 106/69 100
12/31/23 14:18 12/31/23 14:18 12/31/23 14:18 12/31/23 14:18 12/31/23 14:18
MDM/Problems Addressed
MDM/Problems Addressed:
Recurrent hyponatremia noted, for which patient is currently taking 1 salt tablet twice daily as an outpatient, along with fluid restriction. In addition, patient is scheduled to speak with her neurologist regarding discontinuation of one of her
medications, which may be contributing to her ongoing hyponatremia.
Patient's abdominal discomfort, likely secondary to gastritis versus esophagitis versus ulcer. Less likely biliary disease.
Discussed treatment options with patient, including potential admission to the hospital for treatment of hyponatremia along with abdominal discomfort, including potential upper endoscopy. However, at this time, patient would prefer to be discharged
home for an outpatient evaluation and treatment. As such, decision made to discharge patient home at this time, with recommendation to to continue Prilosec, add Carafate, along with diet modification. Patient also will be given information for GI
follow-up as an outpatient.
*Critical Care Note
Total Time (30-74mins, 75-104mins- exclusive of procedures): Not Applicable
ED Attending Note
-
Portions of this chart may have been created with voice recognition software.� Occasional wrong word or��sound alike� substitutions may have occurred due to the inherent limitations of voice recognition software.
Discharge Plan
Departure
Patient Disposition: Home (Routine Discharge)
Date of Disposition: 12/31/23
Time of Disposition: 14:05
Patient with high blood pressure during this ER visit?: No
Discharge Problem:
Hyponatremia, Abdominal pain
Instructions: [place] Diet, Hyponatremia, Abdominal Pain
Prescriptions:
New
sucralfate [Carafate] 100 mg/mL suspension
10 ml PO QID Qty: 400 0RF
No Action
carbamazepine 200 mg Tablet
400 mg PO TID
Rx Instructions:
PT HAS TO USE HER OWN
acetaminophen [Tylenol] 325 mg Tablet
650 mg PO Q4HPRN PRN (Reason: HEADACHE)
cyanocobalamin (vitamin B-12) 1,000 mcg Tablet
1,000 mcg PO DAILY
vitamin E 268 mg (400 unit) Capsule
268 mg PO DAILY
cholecalciferol (vitamin D3) [Vitamin D3] 25 mcg (1,000 unit) Tablet,Chewable
25 mcg PO DAILY
famotidine 20 mg Tablet
20 mg PO BID 10 Days Qty: 20 0RF
furosemide 20 mg Tablet
20 mg PO DAILY 30 Days Qty: 30 0RF
sodium chloride 1,000 mg Tablet,Soluble
1,000 mg PO BID Qty: 60 0RF
Referrals:
Igor Lema MD [Active] -
Niru Mayo DO [Family Provider] -
Linh Espinosa DO [Active] -
Activity Restrictions/Additional Instructions:
As discussed, please follow-up with your neurologist as well as referred to GI physician for further evaluation and treatment. Please return to ED with worsening symptoms, i.e. fever/worsening pain/vomiting. In the meantime, recommend repeat blood
work as an outpatient within next 1 week, in light of ongoing hyponatremia. Your prescription has been sent electronically to [facility] pharmacy in [place].
Interventions
Interventions:
*Risk Screen - Suicide Last Done: 12/31/23 10:51
*General Assessment Last Done: 12/31/23 10:51
*Neglect/Abuse Screening Last Done: 12/31/23 10:51
ED- Fall Risk Assessment Last Done: 12/31/23 11:20
*ED COVID-19 Vaccine History Last Done: 12/31/23 11:20
*Nursing Disposition Last Done: 12/31/23 14:18
[id number] Assessment Last Done: 12/31/23 11:21
Discharge Date and Time
Discharge Date/Time: 12/31/23 14:21
Print Language: CYMRO
[2023-12-31 14:18] VITALS: BP 106/69
[2023-12-31 14:25] LABS: Osmolality Serum 261 mOsm/kg (275-300)
[2023-12-31 14:27] LABS: Osmolality Urine 351 mOsm/kg (300-900)
[2023-12-31 14:30] LABS: Urine Sodium 53 mmol/L (30-90)
== END 2023-12-31 14:21 | disposition home or self-care (01) ==
LOC: EMR 10:43
PROVIDERS: EMERGENCY PHYSICIAN Emergency Medicine; FAMILY PHYSICIAN Family Medicine
DX: E87.1 Hypo-osmolality and hyponatremia (principal); R10.13 Epigastric pain; R11.2 Nausea with vomiting, unspecified; K21.9 Gastro-esophageal reflux disease without esophagitis; G50.0 Trigeminal neuralgia; K52.9 Noninfective gastroenteritis and colitis, unspecified
CPT/HCPCS: 99284; 96374; 96361; 76700; 80053; 81003; 83690; 83930; 83935; 84300; 84703; 85027

== ENCOUNTER → 2024-10-16 17:25 | Outpatient (REF) | payer OTHER, SELFPAY | LOC: WDC 17:25 | PROVIDERS: ATTENDING PHYSICIAN Student in an Organized Health Care Education/Training Program; FAMILY PHYSICIAN Specialist | DX: Z12.31 Encounter for screening mammogram for malignant neoplasm of breast (principal) | CPT/HCPCS: 77063; 77067 ==